=== PATIENT | female | born 1990 | race Caucasian/White ===

== ENCOUNTER 2019-01-13 05:10 | Emergency (ER) | payer BC ==
--- NOTE | 2019-01-13 05:50 | EDM.PDOC ---
ED HPI GENERAL MEDICAL PROBLEM - General Chief Complaint: Abdominal Pain Stated Complaint: RLQ Abdominal pain Time Seen by Provider: 01/13/19 05:40 Source of Information: Reports: Patient, Old Records ([facility] EMR. No paper hospital chart available.) History Limitations: Reports: No Limitations - History of Present Illness INITIAL COMMENTS - FREE TEXT/NARRATIVE: Patient was driven to the emergency room via private automobile by her boyfriend for evaluation of progressive constant right lower quadrant sharp 8/ 10 abdominal pain with symptoms starting at about noon yesterday. Note that the patient began having some anorexia, fever, chills, nausea, and emesis since eating a small amount of chicken at 21:30 hours yesterday evening with no known exposure to infection, food poisoning, etc. Patient has not measured her temperature to this point. She did take 2 stool softeners at 18:00 hours, however has had 3 bowel movements since that time. She has had at least 10 episodes of emesis since midnight with no hematemesis. No recent history of other abdominal pain, heartburn, diarrhea, melena, gross hematochezia, or any food intolerance, including fatty foods, etc.. She denies any gross hematuria, colic, or other UTI symptoms. Patient has had occasional nonproductive cough during the last couple of days with some nonspecific dizziness. Her pain does radiate somewhat to the right lower back region. She did not receive an influenza booster this year. Onset: Gradual Onset Date: 01/12/19 Onset Time: 12:00 Duration: Constant, Getting Worse Location: Reports: Abdomen, Back (As above), Radiates to (As above). Denies: Head, Face, Neck, Chest, Upper Extremity, Left, Upper Extremity, Right, Lower Extremity, Left, Lower Extremity, Right Quality: Reports: Same as Previous Episode, Sharp Severity: Moderate Improves with: Reports: None Worsens with: Reports: None Context: Denies: Sick Contact, Trauma Associated Symptoms: Reports: Cough, Fever/Chills, Loss of Appetite, Nausea/ Vomiting. 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 Denies: Allergic Rhinitis, Cataract, Glaucoma, Impaired Vision, Macular Degeneration, Retinal Detachment Other HEENT History: Moderate bilateral hearing loss with no current hearing aide therapy. Recurrent otitis media with no previous PE tubes Cardiovascular History: Reports: Syncope, Other (See Below). Denies: Afib, Aneurysm, Arrhythmia, Blood Clots/VTE/DVT, CAD, Heart Murmur, High Cholesterol, Hypertension Other Cardiovascular History: Unspecific near syncopal episode in 2007 with no physical exam or workup. She does not know her cholesterol status. Respiratory History: Reports: None. Denies: Asthma, Bronchitis, Recurrent, Intubation, Previous, PE, Pneumothorax Gastrointestinal History: Reports: Chronic Constipation, GERD. Denies: Celiac Disease, Cholelithiasis, Chronic Diarrhea, Colon Polyp, GI Bleed, Hepatitis, Irritable Bowel Syndrome, Jaundice, Pancreatitis, PUD Genitourinary History: Reports: None. Denies: Acute Renal Failure, Chronic Renal Insuffiency, Renal Calculus, STD, Urinary Incontinence, UTI, Recurrent ROLLER EMBOSSER History: Denies: Dysfunctional Uterine Bleeding, Endometriosis, Fibroids , , Spontaneous : 0 LMP (Approximate): Other (See Below) Other ROLLER EMBOSSER History: Amenorrhea secondary to current hormonal implant. Musculoskeletal History: Reports: None, Arthritis, Back Pain, Chronic, Osteoarthritis. Denies: Amputation, Fracture, Gout, RA, SLE Neurological History: Reports: None. Denies: Cerebral Aneurysms, Concussion, Headaches, Chronic, Head Trauma, Migraines, Seizure Psychiatric History: Reports: Anxiety, Depression. Denies: Abuse, Victim of, ADD, ADHD, Addiction, Psych Hospitalization(s), PTSD, Suicide Attempt, Suicidal Ideation Endocrine/Metabolic History: Reports: Obesity/BMI 30+. Denies: Diabetes, Type I , Diabetes, Type II, Diabetes Mellitus, Type 3c, Hypothyroidism, IDDM Hematologic History: Reports: None. Denies: Anemia, Blood Transfusion(s), Iron Deficiency Immunologic History: Reports: None. Denies: AIDS, HIV, SLE Oncologic (Cancer) History: Reports: None. Denies: Basal Cell Carcinoma, Breast , Cervix, Colon, Hodgkin's Lymphoma, Leukemia, Lymphoma, Malignant Melanoma, Non -Hodgkin's Lymphoma, Squamous Cell Carcinoma, Uterine Dermatologic History: Reports: None. Denies: Eczema, Psoriasis - Infectious Disease History Infectious Disease History: Reports: Chicken Pox. Denies: C-Difficile, Measles , Meningitis, Mononucleosis, MRSA, Mumps, Pertussis (Whooping Cough), Rheumatic Fever, Rubella, Scarlet Fever, Shingles, TB, VRE - Past Surgical History Head Surgeries/Procedures: Reports: None HEENT Surgical History: Reports: None. Denies: Adenoidectomy, Eye Surgery, Laser Surgery, LASIK, Myringotomy w Tube(s), Naso-Sinus Surgery, Oral Surgery, Tonsillectomy Cardiovascular Surgical History: Reports: None. Denies: Varicose Respiratory Surgical History: Reports: None. Denies: Thoracentesis GI Surgical History: Denies: Appendectomy, Cholecystectomy, Colonoscopy, EGD, Hernia, Abdominal, Hernia, Inguinal, Hernia Repair/Other Female Surgical History: Reports: None. Denies: Breast Biopsy, Tubal Ligation Endocrine Surgical History: Reports: None. Denies: Thyroid Biopsy Neurological Surgical History: Reports: None. Denies: C-Spine, Discectomy, Laminectomy, Lumbar Spine, Sacral Spine, Spinal Fusion, Thoracic Spine, Vertebroplasty Musculoskeletal Surgical History: Reports: None, Carpal Tunnel, Ganglion Cyst. Denies: Joint Replacement, ORIF, Shoulder Surgery Oncologic Surgical History: Reports: None. Denies: Biopsy of Breast Dermatological Surgical History: Reports: None - Past Imaging History Past Imaging History: Reports: Mammogram (2008), Ultrasound (Breast ultrasound side unknown in 2008.) Social & Family History - Family History GI: Reports: None. Denies: Celiac Disease, Colon Polyps, Inflammatory Bowel Disease, Irritable Bowel Syndrome Endocrine/Metabolic: Reports: Other (See Below) Other Endocrine/Metabolic Family History: Paternal uncle and paternal grandfather with fatal IDDM and previous amputations with uncle dying in his 40s and grandfather in his 60s. Oncologic: Reports: Breast, Other (See Below) Other Oncologic Family History: Paternal grandmother with breast cancer in her 80s. Maternal aunt with breast cancer at age 35. - Tobacco Use Smoking Status *Q: Current Every Day Smoker Tobacco Use Within Last Twelve Months: Cigarettes Years of Tobacco use: 12 Packs/Tins Daily: 0.1 Packs/Tins Daily Comment: Started smoking at age 17 with maximum use of one pack per day with no tobacco use since 01/02 and patient trying to quit. Used Tobacco, but Quit: Yes Smoking Cessation Information Provided To Patient: Yes Second Hand Smoke Exposure: No Second Hand Smoke Education Provided: No - Caffeine Use Caffeine Use: Reports: Coffee (One cup every 3 days.), Soda (5 sodas per week), Tea (2 glasses per day). Denies: Energy Drinks - Alcohol Use Alcohol Use History: Yes Days Per Week of Alcohol Use: 2 Number of Drinks Per Day: 5 Number of Drinks Per Day Comment: Usually beer, mixed drinks, or wine. No previous DWIs, problems with alcohol abuse, etc. 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 ED EXAM, GI/ABD - Physical Exam Exam: See Below Exam Limited By: No Limitations General Appearance: Alert, WD/WN, No Apparent Distress, Anxious (Moderate) Eyes: Bilateral: Normal Appearance (No nystagmus), EOMI (PERRLA) Ears: Normal External Exam, Normal Canal, Normal TMs, Hearing Loss (Mild bilateral) Nose: Normal Inspection, Normal Mucosa, No Blood. No: Clear Rhinorrhea Throat/Mouth: Normal Inspection, Normal Lips, Normal Teeth, Normal Gums, Normal Oropharynx, Normal Voice, No Airway Compromise. No: Dysphagia, Perioral Cyanosis Head: Atraumatic, Normocephalic Neck: Normal Inspection, Supple, Non-Tender, Full Range of Motion. No: Lymphadenopathy (L), Lymphadenopathy (R) Respiratory/Chest: No Respiratory Distress, Lungs Clear, Normal Breath Sounds, No Accessory Muscle Use, Chest Non-Tender. No: Pleural Rub, Retractions Cardiovascular: Normal Peripheral Pulses, Regular Rate, Rhythm, No Edema, No Gallop, No JVD, No Murmur, No Rub. No: Gallop/S3, Gallop/S4, Friction Rub GI/Abdominal Exam: Normal Bowel Sounds, No Organomegaly, No Distention, No Abnormal Bruit, No Mass, Pelvis Stable, Tender (Moderate right lower quadrant palpation pain). No: Guarding, Rigid, Rebound (Female) Exam: Deferred Rectal (Female) Exam: Deferred Back Exam: Normal Inspection, Full Range of Motion. No: CVA Tenderness (L), CVA Tenderness (R), Muscle Spasm Extremities: Normal Inspection, Normal Range of Motion, Non-Tender, No Pedal Edema, Normal Capillary Refill. No: Jasmin's Sign Neurological: Alert, Oriented, CN II-XII Intact, Normal Cognition, Normal Gait, Normal Reflexes (Negative Babinski's), No Motor/Sensory Deficits Psychiatric: Anxious (Moderate), Depressed Mood (Mild with adequate eye contact and no suicidal ideation, plan, etc.) Skin Exam: Warm, Dry, Intact, Normal Color, No Rash. No: Diaphoretic, Wound/ Incision Lymphatic: No Adenopathy Course - Vital Signs Last Recorded V/S: Last Vital Signs Temp 36.5 C 01/13/19 05:10 Pulse 65 01/13/19 08:41 Resp 16 01/13/19 08:41 BP 149/92 H 01/13/19 08:41 Pulse Ox 100 01/13/19 08:41 Vital Signs - 24 hr 01/13/19 01/13/19 01/13/19 05:10 05:44 05:58 Temperature [ 36.5 C Temporal] Pulse, 65 63 Peripheral [ Pulse Oximetry] Respiratory 18 16 17 Rate Blood Pressure 151/93 H 144/90 H 153/89 H [Left Upper Arm ] O2 Sat by Pulse 100 100 100 Oximetry 01/13/19 01/13/19 01/13/19 06:15 06:30 06:40 Temperature [ Temporal] Pulse, 64 58 L 57 L Peripheral [ Pulse Oximetry] Respiratory 18 16 17 Rate Blood Pressure 147/87 H 142/93 H 149/94 H [Left Upper Arm ] O2 Sat by Pulse 100 100 100 Oximetry 01/13/19 01/13/19 01/13/19 07:10 07:26 08:15 Temperature [ Temporal] Pulse, 59 L 59 L 51 L Peripheral [ Pulse Oximetry] Respiratory 15 16 16 Rate Blood Pressure 137/93 H 154/94 H 145/87 H [Left Upper Arm ] O2 Sat by Pulse 100 100 100 Oximetry 01/13/19 08:41 Temperature [ Temporal] Pulse, 65 Peripheral [ Pulse Oximetry] Respiratory 16 Rate Blood Pressure 149/92 H [Left Upper Arm ] O2 Sat by Pulse 100 Oximetry - Orders/Labs/Meds Labs: Laboratory Tests 01/13/19 01/13/19 01/13/19 Range/Units 05:45 06:05 06:05 WBC 19.3 H (4.0-10.2) K/uL RBC 4.62 (3.77-5.09) M/uL Hgb 14.8 D (11.7-15.5) g/dL Hct 43.6 (34.0-46.0) % MCV 94.4 (84.0-98.0) fL MCH 32.0 (28.2-33.3) pg MCHC 33.9 (31.7-36.0) g/dL RDW 13.4 (11.2-14.1) % Plt Count 305 (150-350) K/uL Neut % (Auto) 85.8 H (45.0-80.0) % Lymph % (Auto) 8.9 L (10.0-50.0) % [place] % (Auto) 5.0 (2.0-14.0) % Eos % (Auto) 0.2 (0.0-5.0) % Baso % (Auto) 0.1 (0.0-2.0) % Neut # (Auto) 16.60 H (1.40-7.00) K/uL Lymph # (Auto) 1.72 (0.50-3.50) K/uL [place] # (Auto) 0.97 (0.00-1.00) K/uL Eos # (Auto) 0.03 (0.00-0.50) K/uL Baso # (Auto) 0.02 (0.00-0.20) K/uL PT (9.5-12.0) SEC INR APTT (21.0-31.3) SEC Sodium (136-145) mmol/L Potassium (3.5-5.1) mmol/L Chloride (98-107) mmol/L Carbon Dioxide (21.0-32.0) mmol/L BUN (7-18) mg/dL Creatinine (0.51-1.17) mg/dL Est Cr Clr Drug Dosing mL/min Estimated GFR (MDRD) mL/min Glucose (74-106) mg/dL Lactic Acid (0.4-2.0) mmol/L Uric Acid (2.6-7.2) mg/dL Calcium (8.5-10.1) mg/dL Magnesium (1.8-2.4) mg/dL Total Bilirubin (0.2-1.0) mg/dL AST (15-37) U/L ALT (12-78) U/L Alkaline Phosphatase (46-116) IU/L Total Protein (6.4-8.2) g/dL Albumin (3.4-5.0) g/dL Amylase 41 (25-115) U/L Lipase (73-393) U/L TSH, Ultra Sensitive (0.358-3.740) mIU/mL HCG, Qual (NEGATIVE) Specimen Type Urinvoid Urine Color Yellow Urine Appearance Clear Urine pH 6.5 (5.0-9.0) Ur Specific [place] 1.025 (1.005-1.030) Urine Protein Negative (NEGATIVE) mg/dL Urine Glucose (UA) Negative (NEGATIVE) mg/dL Urine Ketones 40 H (NEGATIVE) mg/dL Urine Occult Blood Negative (NEGATIVE) Urine Nitrite Negative (NEGATIVE) Urine Bilirubin Negative (NEGATIVE) Urine Urobilinogen 0.2 (0.2-1.0) E.U./dL Ur Leukocyte Esterase Negative (NEGATIVE) Urine RBC 0-5 /HPF Urine WBC 0-5 /HPF Ur Epithelial Cells Moderate H /LPF Urine Bacteria Moderate H (NONE TO FEW) /HPF 01/13/19 01/13/19 01/13/19 Range/Units 06:05 06:05 06:05 WBC (4.0-10.2) K/uL RBC (3.77-5.09) M/uL Hgb (11.7-15.5) g/dL Hct (34.0-46.0) % MCV (84.0-98.0) fL MCH (28.2-33.3) pg MCHC (31.7-36.0) g/dL RDW (11.2-14.1) % Plt Count (150-350) K/uL Neut % (Auto) (45.0-80.0) % Lymph % (Auto) (10.0-50.0) % [place] % (Auto) (2.0-14.0) % Eos % (Auto) (0.0-5.0) % Baso % (Auto) (0.0-2.0) % Neut # (Auto) (1.40-7.00) K/uL Lymph # (Auto) (0.50-3.50) K/uL [place] # (Auto) (0.00-1.00) K/uL Eos # (Auto) (0.00-0.50) K/uL Baso # (Auto) (0.00-0.20) K/uL PT 11.5 (9.5-12.0) SEC INR 1.1 APTT 29.6 (21.0-31.3) SEC Sodium 135 L (136-145) mmol/L Potassium 3.6 (3.5-5.1) mmol/L Chloride 98 (98-107) mmol/L Carbon Dioxide 27.1 (21.0-32.0) mmol/L BUN 11 (7-18) mg/dL Creatinine 0.76 (0.51-1.17) mg/dL Est Cr Clr Drug Dosing 89.54 mL/min Estimated GFR (MDRD) > 60 mL/min Glucose 105 (74-106) mg/dL Lactic Acid 1.0 (0.4-2.0) mmol/L Uric Acid 4.8 (2.6-7.2) mg/dL Calcium 9.5 (8.5-10.1) mg/dL Magnesium 1.9 (1.8-2.4) mg/dL Total Bilirubin 0.8 (0.2-1.0) mg/dL AST 15 (15-37) U/L ALT 28 (12-78) U/L Alkaline Phosphatase 49 (46-116) IU/L Total Protein 9.0 H (6.4-8.2) g/dL Albumin 4.7 (3.4-5.0) g/dL Amylase (25-115) U/L Lipase 159 (73-393) U/L TSH, Ultra Sensitive (0.358-3.740) mIU/mL HCG, Qual (NEGATIVE) Specimen Type Urine Color Urine Appearance Urine pH (5.0-9.0) Ur Specific [place] (1.005-1.030) Urine Protein (NEGATIVE) mg/dL Urine Glucose (UA) (NEGATIVE) mg/dL Urine Ketones (NEGATIVE) mg/dL Urine Occult Blood (NEGATIVE) Urine Nitrite (NEGATIVE) Urine Bilirubin (NEGATIVE) Urine Urobilinogen (0.2-1.0) E.U./dL Ur Leukocyte Esterase (NEGATIVE) Urine RBC /HPF Urine WBC /HPF Ur Epithelial Cells /LPF Urine Bacteria (NONE TO FEW) /HPF 01/13/19 01/13/19 Range/Units 06:05 06:05 WBC (4.0-10.2) K/uL RBC (3.77-5.09) M/uL Hgb (11.7-15.5) g/dL Hct (34.0-46.0) % MCV (84.0-98.0) fL MCH (28.2-33.3) pg MCHC (31.7-36.0) g/dL RDW (11.2-14.1) % Plt Count (150-350) K/uL Neut % (Auto) (45.0-80.0) % Lymph % (Auto) (10.0-50.0) % [place] % (Auto) (2.0-14.0) % Eos % (Auto) (0.0-5.0) % Baso % (Auto) (0.0-2.0) % Neut # (Auto) (1.40-7.00) K/uL Lymph # (Auto) (0.50-3.50) K/uL [place] # (Auto) (0.00-1.00) K/uL Eos # (Auto) (0.00-0.50) K/uL Baso # (Auto) (0.00-0.20) K/uL PT (9.5-12.0) SEC INR APTT (21.0-31.3) SEC Sodium (136-145) mmol/L Potassium (3.5-5.1) mmol/L Chloride (98-107) mmol/L Carbon Dioxide (21.0-32.0) mmol/L BUN (7-18) mg/dL Creatinine (0.51-1.17) mg/dL Est Cr Clr Drug Dosing mL/min Estimated GFR (MDRD) mL/min Glucose (74-106) mg/dL Lactic Acid (0.4-2.0) mmol/L Uric Acid (2.6-7.2) mg/dL Calcium (8.5-10.1) mg/dL Magnesium (1.8-2.4) mg/dL Total Bilirubin (0.2-1.0) mg/dL AST (15-37) U/L ALT (12-78) U/L Alkaline Phosphatase (46-116) IU/L Total Protein (6.4-8.2) g/dL Albumin (3.4-5.0) g/dL Amylase (25-115) U/L Lipase (73-393) U/L TSH, Ultra Sensitive 1.959 (0.358-3.740) mIU/mL HCG, Qual Negative (NEGATIVE) Specimen Type Urine Color Urine Appearance Urine pH (5.0-9.0) Ur Specific [place] (1.005-1.030) Urine Protein (NEGATIVE) mg/dL Urine Glucose (UA) (NEGATIVE) mg/dL Urine Ketones (NEGATIVE) mg/dL Urine Occult Blood (NEGATIVE) Urine Nitrite (NEGATIVE) Urine Bilirubin (NEGATIVE) Urine Urobilinogen (0.2-1.0) E.U./dL Ur Leukocyte Esterase (NEGATIVE) Urine RBC /HPF Urine WBC /HPF Ur Epithelial Cells /LPF Urine Bacteria (NONE TO FEW) /HPF Meds: Medications Discontinued Medications Generic Name Dose Route Start Last Admin Trade Name Freq PRN Reason Stop Dose Admin Famotidine 40 mg 01/13/19 05:52 01/13/19 06:14 Pepcid IVPUSH 01/13/19 05:53 40 mg ONETIME ONE Administration Hydromorphone HCl 1 mg 01/13/19 06:52 01/13/19 07:03 Dilaudid IVPUSH 01/13/19 06:53 1 mg ONETIME ONE Administration Hydromorphone HCl 1 mg 01/13/19 08:44 01/13/19 08:47 Dilaudid IVPUSH 01/13/19 08:45 1 mg ONETIME ONE Administration Ceftriaxone Sodium 1 gm/ 100 mls @ 200 mls/hr 01/13/19 05:52 01/13/19 06:15 Sodium Chloride IV 01/13/19 06:21 200 mls/hr ONETIME ONE Administration Lactated Ringer's 1,000 mls @ 999 mls/hr 01/13/19 05:52 01/13/19 07:03 Ringers, Lactated IV 01/13/19 06:52 999 mls/hr .BOLUS ONE Administration Metronidazole 500 mg/ Premix 100 mls @ 100 mls/hr 01/13/19 05:52 01/13/19 07: 03 IV 01/13/19 06:51 100 mls/hr ONETIME ONE Administration Iopamidol 100 ml 01/13/19 07:30 Isovue-300 (61%) IVPUSH 01/13/19 07:31 ONETIME ONE Metoclopramide HCl 10 mg 01/13/19 06:42 01/13/19 06:45 Reglan IVPUSH 01/13/19 06:43 10 mg ONETIME ONE Administration Ondansetron HCl 4 mg 01/13/19 05:52 01/13/19 06:14 Zofran IVPUSH 01/13/19 05:53 4 mg ONETIME ONE Administration Pantoprazole Sodium 40 mg 01/13/19 05:52 01/13/19 06:14 Protonix Iv IVPUSH 01/13/19 05:53 40 mg ONETIME ONE Administration Sodium Chloride 10 ml 01/13/19 05:52 01/13/19 06:45 Saline Flush FLUSH 10 ml ASDIRECTED PRN Administration Keep Vein Open - Radiology Interpretation Free Text/Narrative:: Acute abdominal x-ray shows mild diffuse stool with no evidence of free air, intra-abdominal calcifications, ileus, obstruction, fluid levels, pulmonary infiltrates, cardiomegaly, pneumothorax, etc. Telephone consultation at 08:25 hours with the radiology department at [facility]. Preliminary verbal report of CT scan of the abdomen and pelvis with IV contrast. Study confirms suspected appendicitis without evidence of abscess, perforation, etc. CT Results Date: 01/13/19 CT Results Time: 08:25 Departure - Departure Time of Disposition: 09:06 Disposition: DC/Tfer to Acute Hospital 02 Condition: Good Clinical Impression: Peptic reflux disease, Tobacco abuse counseling, Mixed anxiety depressive disorder, Obesity (BMI 30.0-34.9) Abdominal pain Qualifiers: Abdominal location: right lower quadrant Qualified Code(s): R10.31 - Right lower quadrant pain Appendicitis Qualifiers: Appendicitis type: acute appendicitis Acute appendicitis type: other Qualified Code(s): K35.890 - Other acute appendicitis without perforation or gangrene - Discharge Information *PRESCRIPTION DRUG MONITORING PROGRAM REVIEWED*: Not Applicable *COPY OF PRESCRIPTION DRUG MONITORING REPORT IN PATIENT [place]IE[place]: Not Applicable Instructions: Steps to Quit Smoking, [id number], Appendicitis, [id number] Referrals: PCP,None [Primary Care Provider] - Forms: ED Department Discharge, Interfacility Transfer EMTALA Additional Instructions: 1. STRICT nothing thing to eat or drink until otherwise directed by [place] physicians. 2. Have your boyfriend drive you directly to [facility] in [facility] for planned probable appendectomy. 3. Congratulations about trying to lose weight with continued weight loss and exercise in moderation as directed after surgery 4. Congratulations about trying to stop smoking. Stop all tobacco use [facility] as directed/per provided information and consider contacting Quit LIne, etc.. 5. Continue to observe your blood pressure closely through your regular provider. 6. Work excuse to be provided by accepting providers in [place] 7. Immediately after this visit verify that your cellular telephone's voicemail has been activated and is empty. Also verify that your home telephone's answering machine is operating properly and has space to receive messages. Note that it is sometimes necessary for us to be able to contact you at a later date to discuss your medical care. 8. Please remember that we are ALWAYS here for you and want to answer any questions you may have. Feel free to call the hospital any time and we call you back [facility]. - Problem List & Annotations (1) Appendicitis SNOMED Code(s): 72788428 Code(s): K37 - UNSPECIFIED APPENDICITIS Status: Acute Priority: High Onset Date: ~01/12/19 Annotation/Comment:: Positive CT scan results as above. IV Flagyl and IV Rocephin therapy have already been given as below. Telephone consultation at 08:[address] White, general surgeon at [facility] in [place], who does accept the patient for direct admission, with no further treatment recommendations given. Private automobile transfer by her boyfriend. She will be discharged with saline lock. Note last solid intake at 21:30 hours yesterday evening with some sips of water prior to arrival to our emergency room. Qualifiers: Appendicitis type: acute appendicitis Acute appendicitis type: other Qualified Code(s): K35.890 - Other acute appendicitis without perforation or gangrene; K35.89 - Other acute appendicitis (2) Abdominal pain SNOMED Code(s): 32464173 Code(s): R10.9 - UNSPECIFIED ABDOMINAL PAIN Status: Acute Priority: High Onset Date: 01/12/19 Annotation/Comment:: Note moderate right lower quadrant palpation pain by exam with negative peritoneal signs. Secondary to significant leukocytosis and suspected appendicitis IV Rocephin and IV Flagyl were initiated prior to initiation of CT scan. Note some ketonuria with 1 L bolus of lactated Ringer's given in the emergency room. The patient did have similar type symptoms in March 2018 with no significant workup other than blood work with no x-rays, etc. conducted. She has not had an EGD or colonoscopy to this point. The patient was apparently prescribed antibiotics for unknown reason at that time, although she did have some mild leukocytosis. She does have occasional problems with constipation. No family history of Crohn's disease , ulcerative colitis, etc. as above. Blood pressure somewhat elevated secondary to current pain and discomfort. Continue to observe closely through her regular provider after planned appendectomy with further GI workup depending on her clinical course. Qualifiers: Abdominal location: right lower quadrant Qualified Code(s): R10.31 - Right lower quadrant pain (3) Mixed anxiety depressive disorder SNOMED Code(s): 555612635 Code(s): F41.8 - OTHER SPECIFIED ANXIETY DISORDERS Status: Chronic Priority: Medium Annotation/Comment:: Mild to moderate control based on today' s exam. She is currently on unknown when necessary medications. Continue to observe closely by regular provider. (4) Obesity (BMI 30.0-34.9) SNOMED Code(s): 987106775580868 Code(s): E66.9 - OBESITY, UNSPECIFIED Status: Chronic Priority: Medium Annotation/Comment:: Patient did start working out in a gym membership and is trying to lose weight. No history of trauma or abdominal injury explaining her above abdominal pain. Continued weight loss exercise in moderation advisable. (5) Peptic reflux disease SNOMED Code(s): 418731429 Code(s): K21.9 - GASTRO-ESOPHAGEAL REFLUX DISEASE WITHOUT ESOPHAGITIS Status: Chronic Priority: Medium Annotation/Comment:: Stable by history with no current medications required. High-dose IV Pepcid and IV Protonix given as GI prophylaxis. (6) Tobacco abuse counseling SNOMED Code(s): 772668505, 942347002, 935429180 Code(s): Z71.6 - TOBACCO ABUSE COUNSELING Status: Chronic Priority: Medium Annotation/Comment:: The patient was congratulated about stopping smoking and is finding tobacco cessation information at discharge. - Problem List Review Problem List Initiated/Reviewed/Updated: Yes - Assessment/Plan Assessment:: As above Plan: As above. Extensive precautions were given to the patient, who is in agreement with the treatment plan. See Patient Instructions for further treatment and plan.
[2019-01-13] MEDS ORDERED: metroNIDAZOLE/Normal Saline 500 MG in Premix Bag 1 BAG IV ONE (05:52)
[2019-01-13] MEDS ORDERED: Lactated Ringers 1,000 ML IV ONE (05:52)
[2019-01-13] MEDS ORDERED: Ondansetron 4 MG/2 ML SDV IVPUSH ONE (05:52)
[2019-01-13] MEDS ORDERED: Famotidine 20 MG/2 ML SDV IVPUSH ONE (05:52)
[2019-01-13] MEDS ORDERED: cefTRIAXone 1 GM in Sodium Chloride 0.9% 100 ML IV ONE (05:52)
[2019-01-13] MEDS ORDERED: Pantoprazole 40 MG Vial IVPUSH ONE (05:52)
[2019-01-13] MEDS: Sodium Chloride 0.9% 10 ML Syringe FLUSH PRN ×2 (06:15→06:45)
[2019-01-13 06:30] LABS: CHLORIDE,CL 98 mmol/L (98-107); SODIUM,NA 135 mmol/L (136-145)
[2019-01-13] MEDS ORDERED: Metoclopramide 10 MG/2 ML SDV IVPUSH ONE (06:42)
[2019-01-13] MEDS ORDERED: HYDROmorphone 1 MG/ML Syringe IVPUSH ONE ×2 (06:52→08:44)
[2019-01-13] MEDS ORDERED: Iopamidol 612 MG/ML 100 ML Bottle IVPUSH ONE (07:30)
== END 2019-01-13 09:06 ==
LOC: LL.ED 05:10
DX: K27.9 Peptic ulcer, site unspecified, unspecified as acute or chronic, without hemorrhage or perforation (principal); F41.8 Other specified anxiety disorders; K35.890 Other acute appendicitis without perforation or gangrene; E66.9 Obesity, unspecified; Z68.34 Body mass index [BMI] 34.0-34.9, adult; K21.9 Gastro-esophageal reflux disease without esophagitis; Z71.6 Tobacco abuse counseling
CPT/HCPCS: 36415; 74022; 74177; 80053; 81001; 82150; 82272; 83605; 83690; 83735; 84443; 84550; 84703; 85025; 85610; 85730; 87086; 87338; 96361; 96365; 96367; 96375; 96376; 99285-25; C9113; J0696; J1170; J2405; J2765; J3490; J7050; J7120; Q9967